=== PATIENT | male | born 1965 | race Caucasian/White ===

== ENCOUNTER 2017-01-28 23:59 | Emergency (ER) | payer OTHER ==
--- NOTE | 2017-01-29 06:13 | ER ---
ADMIT: 01/28/2017 RM/LOC: ER [facility] MR#: [id number] [id number] JOSE A ORTEGA [address] [place] [id number] Emergency Room Report SEX: M AGE: 51 : 1965 DATE: 01/28/2017 HISTORY OF PRESENT ILLNESS: The patient is a 51-year-old male, came here with chief complaint of feeling slightly nauseous after allegedly being exposed to possible carbon monoxide. The patient states he was trying to fix the guidry of a working stove, and he believes that the guidry was opened for a few seconds, and after that, he felt slightly nauseous and came to the ER and the incident happened about an hour ago. The patient denies exposure to other chemicals. The patient denies any vomiting or any chest pain or shortness of breath or dizziness or headaches. The patient also states that he was nauseous at that moment which has resolved by now. PHYSICAL EXAMINATION: HEAD AND NECK: Noncontributory. CHEST: Clear bilaterally. HEART: Normal heart sounds. ABDOMEN: Soft. SKIN: There is no skin rashes or skin changes. Carboxyhemoglobin level was 0.9, which was not significant. The patient was reassured and he states he has no complaints and just wanted to be checked. The patient was discharged home. Lalo Weinstein MD/ [facility]co JOB #: [id number] CC: Lalo Weinstein MD, Attending Physician Jeff Hodgson MD, Family Physician
== END 2017-01-29 00:55 | disposition home or self-care (01) ==
LOC: ER 23:59
DX: R11.0 Nausea (principal)